=== PATIENT | female | born 1965 | race Asian ===

== ENCOUNTER 2021-05-16 05:27 | Emergency (ER) | payer BC, OTHER ==
[~2021-05-16] VITALS: Ht 152.4 cm; Wt 71.8 kg
[~2021-05-16 05:27] MED LIST: SUMA25TA4 PO; cholesterol
--- NOTE | 2021-05-16 05:52 | NUR ---
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 PT C/O LIP NUMBNESS. PT STATES SHE WOKE UP FRIDAY MORNING, HER TONGUE WAS NUMB. PT WENT TO WORK YESTERDAY, ALL DAY INTERMITTENT NUMBNESS. PT ALSO ENDORSES BLURRY VISION. DENIES HEADACHE. STATES SHE FEELS HEAT COMING FROM EAR ALL SYMPTOMS STARTED ROUGHLY X2 DAYS AGO. STARTING WITH EAR. TRIAGE NOTE ERMD AT BEDSIDE FOR EVAL. TESTING FOR STROKE DENIES N/V/D AND FEVER/CHILLS
[2021-05-16 06:11] VITALS: BP 107/64
--- NOTE | 2021-05-16 06:41 | NUR ---
Patient/Caregiver given discharge instructions and they have confirmed that they understand the instructions. Patient ambulatory with steady gait. NAD, all questions answered appropriately, denies additional needs at this time. No personal belongings left in room after discharge.
--- NOTE | 2021-05-16 09:22 | NUR ---
TELEPHONE CALL FROM LAB, NO SAMPLE RECEIVED. PT CALLED AND NOTIFIED OF OPTIONS. STATES WILL COME BACK THIS AFTERNOON TO RESWAB.
--- NOTE | 2021-05-16 13:30 | NUR ---
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 NO TRIAGE/VITALS TO BE COMPLETED PER RATE SUPERVISOR KATLYN. COVID SWAB COLLECTED, VERIFIED PT IDENTIFIERS. SWAB WALKED TO LAB BY JORGE ALBERTO DOUGLAS. PT AMBULATED OUT OF TRIAGE WITH STEADY GAIT. A&OX4.
== END 2021-05-16 06:42 | disposition home or self-care (01) ==
LOC: ED 06:39
DX: G51.0 Bell's palsy (principal); Z20.822 Contact with and (suspected) exposure to COVID-19
CPT/HCPCS: 99283; U0003; U0005

== ENCOUNTER 2021-05-16 12:53 | Emergency (ER) | payer OTHER | END 2021-05-16 14:21 | LOC: MERGE 12:53 → ED 14:15 | DX: Z53.21 Procedure and treatment not carried out due to patient leaving prior to being seen by health care provider (principal) ==